=== PATIENT | female | born 1935 | race Caucasian/White ===

== ENCOUNTER 2017-05-22 20:48 | Emergency (ER) | payer MEDICARE, BC ==
[2017-05-22] MEDS ORDERED: Albuterol/Ipratropium 3.0-0.5 MG/3 ML Neb Soln NEB ONE (20:56)
[2017-05-22] MEDS ORDERED: Levofloxacin 250 MG Tab PO STA (21:54)
[2017-05-22] MEDS ORDERED: Furosemide 40 MG/4 ML VIAL IVPUSH ONE (21:59)
[2017-05-22] MEDS ORDERED: Sodium Chloride 0.9% 10 ML Syringe FLUSH PRN (22:03)
--- NOTE | 2017-05-22 22:51 | EDM.PDOC ---
ED HPI GENERAL MEDICAL PROBLEM - General Chief Complaint: Respiratory Problem Stated Complaint: SHORTNESS OF BREATH Time Seen by Provider: 05/22/17 20:58 Source of Information: Reports: Patient, Family History Limitations: Reports: Respiratory Distress - History of Present Illness INITIAL COMMENTS - FREE TEXT/NARRATIVE: 81 y.o.w.f with DM came with her SO the ed because she suddenly said to her SO she is SOB while watching TV. Pt was in the living room. SO rushed patient to the ed. Her SBP was >210. Pt took all her meds in the morning. No C/P no trauma. Pt has chronic lower leg edema. Pt is a poor historian BP was 200/100 Pulse 85 Temp 36.4 RR 22 pulse ox 100% Onset Date: 05/22/17 Onset Time: 20:00 Duration: Minutes:, Intermittent Location: Reports: Chest Quality: Reports: Other (SOB) Severity: Moderate - Related Data Allergies Allergy/AdvReac Type Severity Reaction Status Date / Time No Known Allergies Allergy Verified 05/22/17 20:57 Home Meds: Home Meds Losartan/Hydrochlorothiazide [Losartan-HCTZ 50-12.5 MG] 1 tab PO DAILY 01/31/13 [History] Aspirin [Catrachito Chewable Aspirin] 81 mg PO DAILY 02/20/13 [History] Timolol Maleate [Timoptic 0.5% Ophth Soln] 1 drop EYEBOTH DAILY 02/20/13 [ History] Zolpidem Tartrate 5 mg PO BEDTIME PRN 02/20/13 [History] glipiZIDE [Glipizide ER] 10 mg PO DAILY 02/20/13 [History] metFORMIN HCl [Metformin HCl] 500 mg PO BID 02/20/13 [History] Fluconazole [Diflucan] 150 mg PO DAILY #3 tab 08/14/14 [Rx] Levofloxacin 500 mg PO DAILY #10 tablet 05/22/17 [Rx] traZODone 50 mg PO BEDTIME 05/22/17 [History] Past Medical History Cardiovascular History: Reports: Hypertension Endocrine/Metabolic History: Reports: Diabetes, Type II Social & Family History - Tobacco Use Smoking Status *Q: Never Smoker - Caffeine Use Caffeine Use: Reports: None - Recreational Drug Use Recreational Drug Use: No ED ROS GENERAL - Review of Systems Review Of Systems: See Below Constitutional: Reports: No Symptoms HEENT: Reports: No Symptoms Respiratory: Reports: Shortness of Breath Cardiovascular: Reports: Blood Pressure Problem Endocrine: Reports: No Symptoms GI/Abdominal: Reports: No Symptoms : Reports: No Symptoms Musculoskeletal: Reports: No Symptoms Skin: Reports: No Symptoms Neurological: Reports: No Symptoms Psychiatric: Reports: No Symptoms Hematologic/Lymphatic: Reports: No Symptoms Immunologic: Reports: No Symptoms ED EXAM, GENERAL - Physical Exam Exam: See Below Exam Limited By: Respiratory Distress General Appearance: Alert, WD/WN, Mild Distress, Obese Eye Exam: Bilateral Eye: Normal Inspection Ears: Normal External Exam Ear Exam: Bilateral Ear: Auricle Normal Nose: Normal Inspection Throat/Mouth: Normal Inspection Head: Atraumatic, Normocephalic Neck: Normal Inspection, Supple, Non-Tender, Full Range of Motion Respiratory/Chest: Respiratory Distress, Decreased Breath Sounds (poor insp effort) Cardiovascular: Normal Peripheral Pulses, Other (chronic leg edema) Peripheral Pulses: 1+: Brachial (R) GI/Abdominal: Distended (chronically) (Female) Exam: Deferred Rectal (Female) Exam: Deferred Back Exam: Normal Inspection, Full Range of Motion Extremities: Pedal Edema (chronic) Neurological: Alert, Oriented, CN II-XII Intact, Normal Cognition, No Motor/ Sensory Deficits Psychiatric: Normal Affect, Normal Mood Skin Exam: Warm, Dry, Intact, Normal Color, No Rash Lymphatic: No Adenopathy Course - Vital Signs Text/Narrative:: 81 y.o.w.f with DM came with her SO the ed because she suddenly said to her SO she is SOB while watching TV. Pt was in the living room. SO rushed patient to the ed. Her SBP was >210. Pt took all her meds in the morning. No C/P no trauma. Pt has chronic lower leg edema. Pt is a poor historian BP was 200/100 Pulse 85 Temp 36.4 RR 22 pulse ox 100% PE: obese 81 y.o.w.d with DM an HTN Imaging: CXR NAD, no CHF Labs: Pro BNP 1664 Glc 255 UA pos for UTI with hematuria BUN 27 Cr 1.0 Nl WBC Impression: Elevated BNP, HTN, UTI Tx: Lasix, Duoneb, Levoquine Reexam: Improved, pt was ambulating well before D/C BP on C/C was 167/63 Plan: D/C with instructions Last Recorded V/S: Last Vital Signs Temp 36.5 C 05/22/17 20:58 Pulse 76 05/22/17 22:30 Resp 22 H 05/22/17 20:58 BP 167/63 H 05/22/17 22:30 Pulse Ox 100 05/22/17 20:58 - Orders/Labs/Meds Orders: Active Orders 24 hr Category Date Time Status RT Aerosol Therapy [RC] ASDIRECTED Care 05/22/17 20:58 Active CULTURE URINE [RM] Stat Lab 05/22/17 21:37 Results Saline Lock Insert [OM.PC] Routine Oth 05/22/17 22:03 Ordered Labs: Laboratory Tests 05/22/17 05/22/17 05/22/17 Range/Units 21:15 21:15 21:15 WBC 6.1 (4.5-12.0) X10-3/uL RBC 4.09 (3.23-5.20) x10(6)uL Hgb 12.5 (11.5-15.5) g/dL Hct 36.1 (30.0-51.3) % MCV 88.0 (80-96) fL MCH 30.5 (27.7-33.6) pg MCHC 34.7 (32.2-35.4) g/dL RDW 14.2 (11.5-15.5) % Plt Count 163 (125-369) X10(3)uL MPV 8.2 (7.4-10.4) fL Neut % (Auto) 61.8 (46-82) % Lymph % (Auto) 22.9 (13-37) % [place] % (Auto) 6.2 (4-12) % Eos % (Auto) 8 H (1.0-5.0) % Baso % (Auto) 1 (0-2) % Neut # (Auto) 3.8 (1.6-8.3) # Lymph # (Auto) 1.4 (0.6-5.0) # [place] # (Auto) 0.4 (0.0-1.3) # Eos # (Auto) 0.5 (0.0-0.8) # Baso # (Auto) 0.0 (0.0-0.2) # PT 9.7 (8.7-11.1) INR 0.96 (0.89-1.13) D-Dimer, Quantitative 444 H (100-400) ng/mL Sodium (135-145) mmol/L Potassium (3.5-5.3) mmol/L Chloride (100-110) mmol/L Carbon Dioxide (21-32) mmol/L BUN (7-18) mg/dL Creatinine (0.55-1.02) mg/dL Est Cr Clr Drug Dosing mL/min Estimated GFR (MDRD) (>60) BUN/Creatinine Ratio (9-20) Glucose (80-116) mg/dL Calcium (8.6-10.2) mg/dL NT-Pro-B Natriuret Pep (<=450) pg/mL Urine Color (YELLOW) Urine Appearance (CLEAR) Urine pH (5.0-6.5) Ur Specific [place] (1.010-1.025) Urine Protein (NEGATIVE) mg/dL Urine Glucose (UA) (NEGATIVE) mg/dL Urine Ketones (NEGATIVE) mg/dL Urine Occult Blood (NEGATIVE) Urine Nitrite (NEGATIVE) Urine Bilirubin (NEGATIVE) Urine Urobilinogen (NEGATIVE) mg/dL Ur Leukocyte Esterase (NEGATIVE) Urine RBC (0) Urine WBC (0) Ur Squamous Epith Cells (NS,R,O) Urine Bacteria (NS) 05/22/17 05/22/17 05/22/17 Range/Units 21:15 21:15 21:37 WBC (4.5-12.0) X10-3/uL RBC (3.23-5.20) x10(6)uL Hgb (11.5-15.5) g/dL Hct (30.0-51.3) % MCV (80-96) fL MCH (27.7-33.6) pg MCHC (32.2-35.4) g/dL RDW (11.5-15.5) % Plt Count (125-369) X10(3)uL MPV (7.4-10.4) fL Neut % (Auto) (46-82) % Lymph % (Auto) (13-37) % [place] % (Auto) (4-12) % Eos % (Auto) (1.0-5.0) % Baso % (Auto) (0-2) % Neut # (Auto) (1.6-8.3) # Lymph # (Auto) (0.6-5.0) # [place] # (Auto) (0.0-1.3) # Eos # (Auto) (0.0-0.8) # Baso # (Auto) (0.0-0.2) # PT (8.7-11.1) INR (0.89-1.13) D-Dimer, Quantitative (100-400) ng/mL Sodium 141 (135-145) mmol/L Potassium 3.9 (3.5-5.3) mmol/L Chloride 105 (100-110) mmol/L Carbon Dioxide 28 (21-32) mmol/L BUN 27 H (7-18) mg/dL Creatinine 1.0 (0.55-1.02) mg/dL Est Cr Clr Drug Dosing 37.45 mL/min Estimated GFR (MDRD) 53 L (>60) BUN/Creatinine Ratio 27.0 H (9-20) Glucose 255 H (80-116) mg/dL Calcium 8.9 (8.6-10.2) mg/dL NT-Pro-B Natriuret Pep 1634 H* (<=450) pg/mL Urine Color Yellow (YELLOW) Urine Appearance Slightly cloudy (CLEAR) Urine pH 5.0 (5.0-6.5) Ur Specific [place] 1.015 (1.010-1.025) Urine Protein Negative (NEGATIVE) mg/dL Urine Glucose (UA) >1000 H (NEGATIVE) mg/dL Urine Ketones Negative (NEGATIVE) mg/dL Urine Occult Blood Negative (NEGATIVE) Urine Nitrite Positive H (NEGATIVE) Urine Bilirubin Negative (NEGATIVE) Urine Urobilinogen Normal (NEGATIVE) mg/dL Ur Leukocyte Esterase Moderate H (NEGATIVE) Urine RBC 0-5 (0) Urine WBC 10-20 H (0) Ur Squamous Epith Cells Few H (NS,R,O) Urine Bacteria Many H (NS) Meds: Medications Discontinued Medications Generic Name Dose Route Start Last Admin Trade Name Freq PRN Reason Stop Dose Admin Albuterol/Ipratropium 3 ml 05/22/17 20:56 05/22/17 21:02 Duoneb 3.0-0.5 Mg/3 Ml NEB 05/22/17 20:57 3 ml ONETIME ONE Administration Furosemide 40 mg 05/22/17 21:59 05/22/17 22:05 Lasix IVPUSH 05/22/17 22:00 40 mg NOW ONE Administration Levofloxacin 500 mg 05/22/17 21:54 05/22/17 22:01 Levaquin PO 05/22/17 21:55 500 mg ONETIME STA Administration Sodium Chloride 10 ml 05/22/17 22:03 05/22/17 22:05 Saline Flush FLUSH 10 ml ASDIRECTED PRN Administration Keep Vein Open Departure - Departure Time of Disposition: 22:45 Disposition: Home, Self-Care 01 Condition: Good Clinical Impression: Elevated brain natriuretic peptide (BNP) level UTI (urinary tract infection) Qualifiers: Urinary tract infection type: acute cystitis Hematuria presence: with hematuria Qualified Code(s): N30.01 - Acute cystitis with hematuria HTN (hypertension) Qualifiers: Hypertension type: unspecified Qualified Code(s): I10 - Essential (primary) hypertension - Discharge Information Prescriptions: Levofloxacin 500 mg PO DAILY #10 tablet Referrals: Agustin Phelps MD [Primary Care Provider] - Forms: ED Department Discharge Additional Instructions: Please take levofloxacine as recommended, please f/u with your PMD in 1-3 days, please come back if your symptoms get worse acutely. - My Orders Last 24 Hours: My Active Orders 05/22/17 20:58 RT Aerosol Therapy [RC] ASDIRECTED 05/22/17 21:37 CULTURE URINE [RM] Stat 05/22/17 22:03 Saline Lock Insert [OM.PC] Routine - Assessment/Plan Last 24 Hours: My Active Orders 05/22/17 20:58 RT Aerosol Therapy [RC] ASDIRECTED 05/22/17 21:37 CULTURE URINE [RM] Stat 05/22/17 22:03 Saline Lock Insert [OM.PC] Routine
[2017-05-23 01:20] VITALS: BP 167/63
--- NOTE | 2017-05-23 10:19 | CR ---
INDICATION: Short of breath. CHEST: PA and lateral views of the chest revealed flattening of diaphragm leaves, prominent AP diameter, and mild hyperaeration compatible with COPD. Heavy markings are noted at the lung bases with blunting of the posterior sulci and costophrenic angles, left greater than right. Findings may be on the basis of minimal bibasilar pneumonia and pleuritis. The heart appeared enlarged. The aorta is calcified in the arch area and descending portion. Dextroconvex scoliosis of the thoracic spine of mild to moderate degree is noted with diminished bone density suggested compatible with osteoporosis - correlate clinically. IMPRESSION: 1. Bibasilar pneumonia and pleuritis, left greater than right. 2. COPD. 3. ASHD with probable LVE. 4. Osteoporosis with scoliosis. MTDD
== END 2017-05-22 22:55 | disposition home or self-care (01) ==
LOC: FB.ED 20:48
DX: I10 Essential (primary) hypertension (principal); N30.01 Acute cystitis with hematuria; E11.9 Type 2 diabetes mellitus without complications; R79.89 Other specified abnormal findings of blood chemistry; Z79.899 Other long term (current) drug therapy; Z79.82 Long term (current) use of aspirin; Z79.84 Long term (current) use of oral hypoglycemic drugs
CPT/HCPCS: 36415; 71020; 80048; 81001; 83880; 85025; 85379; 85610; 87086; 87088; 87186; 94640; 96374; 99285; A9270; J1940; J7050; J7620; 99284

== ENCOUNTER 2021-08-05 02:10 | Emergency (ER) | payer MEDICARE, BC ==
[2021-08-05] MEDS ORDERED: Acetaminophen 500 MG Tab PO STA (02:29)
[2021-08-05] MEDS ORDERED: traMADol 50 MG Tab PO STA (02:29)
[2021-08-05] MEDS ORDERED: Sodium Chloride 0.9% 10 ML Syringe FLUSH PRN (04:07)
[2021-08-05] MEDS ORDERED: Morphine 2 MG/ML SYRINGE IVPUSH PRN (04:32)
[2021-08-05] MEDS ORDERED: Glucagon,Human Recombinant 1 MG Vial IM PRN ×2 (04:40→04:47)
[2021-08-05] MEDS ORDERED: 50% Dextrose in Water 50 ML Syringe IVPUSH PRN ×2 (04:40→04:47)
[2021-08-05] MEDS ORDERED: Insulin Lispro 100 Unit/ML 3 ML KwikPen SUBCUT STA (04:47)
[2021-08-05 04:48] LABS: ESTIMATED GFR 17 (>60)
[2021-08-05] MEDS ORDERED: cefTRIAXone 1 GM Vial IVPUSH STA (04:49)
[2021-08-05] MEDS: Sodium Chloride 0.9% 1,000 ML IV SCH ×2 (04:50→09:42)
[2021-08-05] MEDS: Insulin Lispro 100 Unit/ML 3 ML KwikPen SUBCUT SCH ×2 (07:05→11:27)
[2021-08-05 07:12] VITALS: PULSE 69
[2021-08-05 10:19] VITALS: BP 101/47
[2021-08-05 11:19] LABS: ESTIMATED GFR 14 (>60)
[2021-08-05] MEDS ORDERED: VANCOmycin 1 GM/200 ML 1 GM in Premix Bag 1 BAG IV ONE (11:30)
== END 2021-08-05 12:40 | disposition still patient (30) ==
LOC: FB.ED 02:10
DX: S72.402A Unspecified fracture of lower end of left femur, initial encounter for closed fracture (principal); N30.01 Acute cystitis with hematuria; I12.9 Hypertensive chronic kidney disease with stage 1 through stage 4 chronic kidney disease, or unspecified chronic kidney disease; E11.22 Type 2 diabetes mellitus with diabetic chronic kidney disease; N18.9 Chronic kidney disease, unspecified; Z79.82 Long term (current) use of aspirin; Z79.899 Other long term (current) drug therapy; W06.XXXA Fall from bed, initial encounter
CPT/HCPCS: 36415; 51702; 73562; 73590; 80048; 80053; 81001; 82947; 83605; 83880; 85025; 85610; 85730; 87086; 87088; 87186; 96374; 96375; 99283; 99284; A9270; J0696; J1815; J3370; J7030; J3490